=== PATIENT | male | born 1945 | race Caucasian/White ===

== ENCOUNTER 2021-07-20 09:06 | Outpatient (CLI) | payer MEDICARE, SELFPAY ==
--- NOTE | 2021-07-20 09:18 | ECHO_ITS ---
Patient Info Name: Partha Telles Age: 76 years : 1945 Gender: Male Ht: 70 in Wt: 210 lbs BSA: 2.19 m2 HR: 65 bpm BP: 147 / 70 mmHg Exam Date: 07/20/2021 9:42 AM Exam Location: [facility] Patient Status: Outpatient Admit Date: 07/20/2021 Staff Ordering Physician: Alexi Acuña DO Sap Pi Developer: MARIA ESTHER Attending Provider: Alexi Acuña DO Referring Physician: Domenico BAPTISTE; Exam Type: CA echo doppler color flow Study Info Indications I45.89 - Other specified conduction disorders Complete two-dimensional, color flow and Doppler transthoracic echocardiogram is performed. Summary 1. Complete two-dimensional, color flow and Doppler transthoracic echocardiogram is performed. 2. Left ventricular chamber dimension is mildly enlarged. 3. Left ventricular systolic function is normal, estimated at 55-60%. 4. The left ventricular diastolic function is normal. 5. E/e' 8 is minimally elevated. 6. Left atrial chamber dimension is severely enlarged. 7. Right atrial chamber dimension is moderately enlarged. 8. There is mild aortic valve sclerosis. 9. There is mild aortic valve regurgitation. 10. The mitral valve has mildly calcified annulus. 11. There is moderate tricuspid valve regurgitation. 12. Mild pulmonary hypertension, estimated pulmonary arterial systolic pressure is 47 mmHg. 13. There is trace pulmonic regurgitation. 14. Dilated inferior vena cava with >50% collapse upon inspiration consistent with elevated right atrial pressure, 10 mmHg. Left Ventricle E/e' 8 is minimally elevated. Left ventricular chamber dimension is mildly enlarged. Left ventricular systolic function is normal, estimated at 55-60%. The left ventricular diastolic function is normal. Right Ventricle Right ventricular systolic function is normal and with normal TAPSE 2.3 cm. Right ventricular chamber dimension is normal. Left Atria Left atrial chamber dimension is severely enlarged. Right Atria Right atrial chamber dimension is moderately enlarged. Aortic Valve The aortic valve is trileaflet. There is mild aortic valve sclerosis. There is no aortic valve stenosis. There is mild aortic valve regurgitation. Pulmonic Valve There is trace pulmonic regurgitation. Mitral Valve The mitral valve has mildly calcified annulus. There is no mitral valve stenosis. There is moderate mitral valve regurgitation. Tricuspid Valve There is moderate tricuspid valve regurgitation. Mild pulmonary hypertension, estimated pulmonary arterial systolic pressure is 47 mmHg. Pericardium/Pleural There is no pericardial effusion. Inferior Vena Cava Dilated inferior vena cava with >50% collapse upon inspiration consistent with elevated right atrial pressure, 10 mmHg. Aorta The aortic root size at the sinus of Valsalva is normal. Left Ventricular Outflow Tract Name Value Normal LVOT 2D LVOT Diameter 2.0 cm LVOT Doppler LVOT Peak Velocity 106 cm/s LVOT Peak Gradient 4 mmHg LVOT Mean Gradient 2 mmHg LVOT VTI 19 cm
== END 2021-07-20 09:07 | disposition home or self-care (01) ==
LOC: CHSIMG 09:11
PROVIDERS: PCP Internal Medicine; Visit Provider Internal Medicine Cardiovascular Disease
DX: I48.92 Unspecified atrial flutter (principal)
CPT/HCPCS: 93306

== ENCOUNTER → 2021-09-05 07:38 | Outpatient (CLI) | payer MEDICARE, SELFPAY ==
--- NOTE | 2021-09-25 15:44 | WPDSLEEPSTUD ---
Sleep Study Date of Study: 09/05/21 <Lacey Curran DO - Last Filed: 09/25/21 17:31> Ordering Provider: Alexi cAuña DO <Lacey Curran, DO - Last Filed: 09/25/21 17:31> Interpreting Physician: Lacey Curran DO <Lacey Curran DO - Last Filed: 09/25/21 17:31> Sleep Study Type: Split Polysomnogram <Lacey Curran DO - Last Filed: 09/25/21 17:31> Height: 1.78 m <Lacey Curran DO - Last Filed: 09/25/21 17:31> Weight: 97.522 kg <Lacey Curran DO - Last Filed: 09/25/21 17:31> Body Mass Index: 30.8 <Lacey Curran DO - Last Filed: 09/25/21 17:31> Neck Circumference (inches): 17 <Lacey Curran DO - Last Filed: 09/25/21 17:31> [place]: 6 <Lacey Curran DO - Last Filed: 09/25/21 17:31> Reason for Sleep Study Daytime hypersomnia. <Lacey Curran DO - Last Filed: 09/25/21 17:31> Sleep History The patient is a 76-year-old male with COPD, hypertension, atrial flutter with RVR and history of tobacco use that had a split study ordered by his media planner for evaluation of sleep apnea. The patient denies awakening from sleep short of breath. He denies awakening at night with heartburn, belching or cough. He occasionally snores and is loud enough that others complain. He denies having trouble sleeping when he has a cold. He denies waking up gasping for air throughout the night. He denies having breathing problems at night observed by others. He occasionally sweats excessively at night. He occasionally has heart palpitations or irregular heartbeats during the night. He occasionally falls asleep during the day but never while driving. He denies sleep paralysis, cataplexy and hypnagogic / hypnopompic hallucinations. He has never had trouble at work due to sleepiness. He denies having nightmares. He frequently has thoughts racing through his mind. He occasionally feels sad or depressed. He occasionally has anxiety. He denies noticing parts of his body jerk or kicking throughout the night. He denies having crawling and aching feelings in his legs. He occasionally has leg pain during the night. He denies grinding his teeth during sleep and awakening with morning jaw pain. He is occasionally bothered by pain during the day but never awakened by pain during the night. He occasionally wakes up feeling stiff in the morning with sore and achy muscles. He goes to bed at 10:00 p.m. on weekdays and at midnight on the weekends. He can fall asleep pretty quickly. He typically wakes up 2-3 times per night. When he awakens, he would use the restroom. He will stay awake for 1-2 hours. He will wake up between 4 and 5:00 a.m. on weekdays and between 6 7:00 a.m. on the weekends. Typically gets 6 hours of sleep per night. He will stay in bed for 1 hour after waking up in the morning. He currently lives with his . He does not consume any caffeinated beverages within 2 hours of bedtime. He does not engage in physical exercise before bedtime. He will watch television before falling asleep. He will take naps in the afternoon or the evening and they are refreshing. He drinks 2 cups of caffeinated beverage per day. He will have 2 alcoholic beverages per day. He quit smoking 31 years ago. He denies recreational drug use. <Lacey Curran DO - Last Filed: 09/25/21 17:31> [facility] Past Medical History Medical History: Medical History Atrial flutter with rapid ventricular response COPD (chronic obstructive pulmonary disease) Hypertension <Lacey Curran DO - Last Filed: 09/25/21 17:31> Social History Social History: Social History Smoking status: Former smoker <Lacey Curran, - Last Filed: 09/25/21 17:31> Medications Home Medications: Home Medications Medication
[2021-09-25 15:48] VITALS: BMI 30.8
== END ==
PROVIDERS: PCP Internal Medicine; Visit Provider Internal Medicine Cardiovascular Disease
DX: G47.10 Hypersomnia, unspecified (principal); G47.33 Obstructive sleep apnea (adult) (pediatric); I48.92 Unspecified atrial flutter
CPT/HCPCS: 95811

== ENCOUNTER 2021-10-11 19:43 | Outpatient (CLI) | payer MEDICARE, SELFPAY ==
--- NOTE | 2021-10-18 12:00 | WPDSLEEPSTUD ---
Sleep Study Date of Study: 10/11/21 Ordering Provider: Alexi Acuña DO Interpreting Physician: Kati Vergara MD Sleep Study Type: CPAP Titration Height: 1.78 m Weight: 97.522 kg Body Mass Index: 30.8 Neck Circumference (inches): 17 [place]: 6 Reason for Sleep Study Split night study 09/05/2021 with moderate obstructive sleep apnea, AHI 21.4 on the diagnostic portion, and a titration with pressures between CPAP 5 cm and 14 cm H2O with treatment emergent centrals in the later half of the treatment portion of the study likely due to not spending enough time on each pressure. He returns for a dedicated full night in-lab PAP Titration. Sleep History Partha Madison is a 76-year-old male with COPD, hypertension, atrial flutter with RVR and history of tobacco use that had a split study on 09/05/2021 ordered by his balance weigher for evaluation of sleep apnea. The patient denies awakening from sleep short of breath. He denies awakening at night with heartburn, belching or cough. He occasionally snores and is loud enough that others complain. He denies having trouble sleeping when he has a cold. He denies waking up gasping for air throughout the night. He denies having breathing problems at night observed by others. He occasionally sweats excessively at night. He occasionally has heart palpitations or irregular heartbeats during the night. He occasionally falls asleep during the day but never while driving. He denies sleep paralysis, cataplexy and hypnagogic / hypnopompic hallucinations. He has never had trouble at work due to sleepiness. He denies having nightmares. He frequently has thoughts racing through his mind. He occasionally feels sad or depressed. He occasionally has anxiety. He denies noticing parts of his body jerk or kicking throughout the night. He denies having crawling and aching feelings in his legs. He occasionally has leg pain during the night. He denies grinding his teeth during sleep and awakening with morning jaw pain. He is occasionally bothered by pain during the day but never awakened by pain during the night. He occasionally wakes up feeling stiff in the morning with sore and achy muscles. He goes to bed at 10:00 p.m. on weekdays and at midnight on the weekends. He can fall asleep pretty quickly. He typically wakes up 2-3 times per night. When he awakens, he would use the restroom. He will stay awake for 1-2 hours. He will wake up between 4 and 5:00 a.m. on weekdays and between 6 7:00 a.m. on the weekends. Typically gets 6 hours of sleep per night. He will stay in bed for 1 hour after waking up in the morning. He currently lives with his . He will watch television before falling asleep. He will take naps in the afternoon or the evening and they are refreshing. Habits: No tobacco for 31 years. He drinks 2 cups of caffeinated beverage per day. He will have 2 alcoholic beverages per day. He denies recreational drug use. [facility] Past Medical History Medical History (Updated 10/18/21 @ 12:16 by Kati Vergara MD) Atrial flutter with rapid ventricular response COPD (chronic obstructive pulmonary disease) Hypertension SHIMA (obstructive sleep apnea) (~08/2021) Social History Social History Smoking status: Former smoker Medications Home Medications Medication Instructions Recorded Confirmed Type apixaban 5 mg tablet 5 mg PO BID 07/11/21 07/21/21 History diltiazem HCl 360 mg 360 mg PO DAILY #30 cap 07/11/21 07/21/21 Rx capsule,extended release 24 hr metoprolol tartrate 100 mg tablet 100 mg PO Q12H #60 tablet 07/11/21 07/21/21 Rx montelukast 10 mg tablet 10 mg PO DAILY 07/11/21 07/21/21 History multivitamin 1 tablet PO DAILY 07/11/21 07/21/21 History Sleep Procedure This test was performed using the [employer] multiple channel system including EOG, EEG, submental EMG, EKG, nasal and oral airflow using thermistors and nasal press
[2021-10-18 12:21] VITALS: BMI 30.8
== END 2021-10-12 06:15 | disposition home or self-care (01) ==
LOC: CHSCSM 19:44
PROVIDERS: PCP Internal Medicine; Visit Provider Internal Medicine Cardiovascular Disease
DX: G47.33 Obstructive sleep apnea (adult) (pediatric) (principal)
CPT/HCPCS: 95811

== ENCOUNTER 2022-01-02 00:56 | Day surgery (SDC) | payer MEDICARE, SELFPAY ==
[2022-01-01 12:00] VITALS: BMI 28.8
[2022-01-02] VITALS (10 sets, daily range): BP systolic 117–191; BP diastolic 72–100; PULSE 44–55; RESP 14–18; TEMP 36.1; O2SAT 97–100; BMI 30.2
--- NOTE | 2022-01-02 | ECHO_ITS ---
Patient Info Name: Partha Telles Age: 76 years : 1945 Gender: Male Ht: 70 in Wt: 210 lbs BSA: 2.19 m2 HR: 102 bpm Exam Date: 01/02/2022 10:53 AM Exam Location: [facility] Patient Status: Outpatient Admit Date: 01/02/2022 Staff Ordering Physician: Alexi Acuña DO Supervisor Prepress: Harsh Barrera RDCS, RT Attending Provider: Alexi Acuña DO Referring Physician: Domenico BAPTISTE; Exam Type: CA echo transesophageal Study Info Indications I45.89 - Other specified conduction disorders Complete two-dimensional, color flow and Doppler transesophageal study is performed. Procedure Details Risks/benefits/alternative treatment discuss with patient and he is agreeable for procedure. Anesthetized as per anesthesiology service. Cetacaine spray x 1. JONI probe advanced into esophagus without incident. Multiple images obtained at various levels of esophagus. JONI probe withdrawn and no blood noted on JONI probe tip. Patient tolerated procedure well. No complications. Summary 1. Transesophageal echocardiogram. 2. Left ventricular chamber dimension is normal. 3. Left ventricular systolic function is normal with an ejection fraction of 55-60%. 4. The left ventricular diastolic function is indeterminate. 5. Right ventricular chamber dimension is moderately enlarged. 6. Right ventricular systolic function is reduced. 7. Left atrial chamber dimension is severely enlarged. 8. Right atrial chamber dimension is moderately enlarged. 9. There is no thrombus visualized in the left atrial appendage in 2 orthogonal views. 10. There is mild aortic valve sclerosis. 11. There is mild aortic valve regurgitation. 12. There is mild to moderate mitral valve regurgitation. 13. There is mild to moderate tricuspid valve regurgitation. Left Ventricle Left ventricular systolic function is normal with an ejection fraction of 55-60%. Left ventricular chamber dimension is normal. The left ventricular diastolic function is indeterminate. Transesophageal echocardiogram. Right Ventricle Right ventricular chamber dimension is moderately enlarged. Right ventricular systolic function is reduced. Left Atria Left atrial chamber dimension is severely enlarged. Right Atria Right atrial chamber dimension is moderately enlarged. Atrial Appendage There is no thrombus visualized in the left atrial appendage in 2 orthogonal views. Aortic Valve The aortic valve is trileaflet. There is mild aortic valve sclerosis. There is no aortic valve stenosis. There is mild aortic valve regurgitation. Pulmonic Valve There is no pulmonic regurgitation. Mitral Valve There is no mitral valve stenosis. There is mild to moderate mitral valve regurgitation. Tricuspid Valve There is no significant tricuspid valve stenosis. There is mild to moderate tricuspid valve regurgitation. RVSP is not measured. Pericardium/Pleural There is no pericardial effusion. Inferior Vena Cava Inferior vena cava is not well visualized. Aorta The aortic root size at the sinus of Valsalva is normal. Report Signatures
--- NOTE | 2022-01-02 07:59 | WPDANESEPPF ---
Anes - Initial Pre Proc Eval Procedure: Operation Date: 01/02/22 10:30 Proposed Procedures p Trans Esophageal Echo - Alexi Acuña DO s Electrical Cardioversion - Alexi Acñua DO Date/Time: 01/02/22 07:59 Surgeon: Alexi Acuña DO Pre Op Diagnosis: A flutter Patient Data Age: 76 Gender: M Height: 1.78 m Weight: 91 kg Allergies Allergy/AdvReac Type Severity Reaction Status Date / Time No Known Allergies Allergy Verified 01/02/22 08:53 Home Medications Medication Instructions Recorded Confirmed Type apixaban 5 mg tablet 5 mg PO BID 07/11/21 01/02/22 History diltiazem HCl 360 mg 360 mg PO DAILY #30 cap 07/11/21 01/02/22 Rx capsule,extended release 24 hr montelukast 10 mg tablet 10 mg PO DAILY 07/11/21 01/02/22 History metoprolol tartrate 100 mg tablet 50 mg PO Q12H #60 tablet 12/14/21 01/02/22 Rx Patient hx anesthesia problems: none Family hx anesthesia problems: none Results Review: All pre-operative results and documents have been reviewed as part of the pre-operative evaluation. 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 Spiritual care concerns: No Anes - Eval Final PreProcedure Day of Procedure 01/02/22 07:59 Patient weight: overweight Heart: regular rate and rhythm Lungs: clear to auscultation and normal air movement Airway: Mallampati scale class II Neurological: alert and oriented Last oral intake: >/= 8 hours ASA classification: IV Emergent: no Anesthetic plan: proceed Anesthesia type and monitoring: general GIVS and standard monitoring Results Review: All pre-operative results and documents have been reviewed as part of the pre-operative evaluation. Informed Consent: The patient's anesthetic plan and its attendant risks and benefits were discussed with the patient/family/POA. Questions were solicited and answers provided to the satisfaction of the patient/family/POA.
--- NOTE | 2022-01-02 09:00 | ECG_ITS ---
Measurements Intervals [place] Rate: 46 P: 58 WI: 181 QRS: 14 QRSD: 98 T: 32 QT: 477 QTc: 417 Interpretive Statements SINUS BRADYCARDIA WITH SINUS ARRHYTHMIA NONSPECIFIC ST & T-WAVE ABNORMALITY Electronically Signed On 01-02-2022 12:10:41 CDT by Favian Contreras M.D.
[2022-01-02 09:16] LABS: Anion Gap 6 mmol/L (8-16); Blood Urea Nitrogen 18 mg/dL (9-20); Calcium 8.6 mg/dL (8.4-10.2); Carbon Dioxide 28 mmol/L (22-30); Chloride 108 mmol/L (98-107); Estimated CRCL calculation 82 ml/min; Estimated Glomerular Filt Rate > 60; Glucose 106 mg/dL (65-110); Magnesium 1.9 mg/dL (1.6-2.3); Potassium 3.8 mmol/L (3.4-5.0); Sodium 142 mmol/L (137-145)
--- NOTE | 2022-01-02 11:00 | ECG_ITS ---
Measurements Intervals [place] Rate: 63 P: [place]: 0 QRS: 37 QRSD: 125 T: 110 QT: 572 QTc: 587 Interpretive Statements ATRIAL FLUTTER/TACHYCARDIA WITH ABERRANT CONDUCTION OR VENTRICULAR PREMATURE COMPLEXES SEPTAL MYOCARDIAL INFARCTION , OF INDETERMINATE AGE Electronically Signed On 01-02-2022 9:05:20 CDT by Favian Contreras M.D.
--- NOTE | 2022-01-02 11:46 | WPDTECDV ---
JONI with Cardioversion Date of procedure: 01/02/22 Procedure Type: JONI with cardioversion Indications: Symptomatic Atrial flutter Sedation: General as per anesthesiology Findings: Vitals shows HR 100 bpm and BP 130/80 mmHg. JONI prior to cardioversion showed no left atrial or left atrial thrombus. Defibrillator pads placed on anterior and posterior chest. Cardioversion with synchronized biphasic energy at 100 J x1 successfully restored sinus rhythm. HR at 46 bpm in sinus rhythm. No complications. Conclusion: 1. Successful DC cardioversion from atrial flutter to Sinus rhythm. 2. Stop Metoprolol as he is bradycardic.
--- NOTE | 2022-01-02 14:08 | SUR.PHASEII ---
At 1340 patient was taken down to lobby in stable condition as his ride (daughter Ca) said she was a few minutes away from the hospital. While waiting outside for about 10 minutes with the patient, he called his daughter to see where she was. She then realized she went to the wrong hospital to pick him up. She went to [place] and would be heading back to [place]. I offered to have the patient come back to his room 6 in chest pain center to wait. He wished to stay outside. He also requested to go sit in his car. I educated him that he should not get in his car and explained his driving restrictions again with his procedure and sedation per anesthesia given. He agreed to wait in the lobby and not get his in car. The observing professional nursing tutor No opted to stay with patient in the lobby until daughter arrived. She and the near by screeners were given chest pain center number to contact me should they need any assistance.
== END 2022-01-02 12:15 | disposition home or self-care (01) ==
PROVIDERS: PCP Internal Medicine; Visit Provider Internal Medicine Cardiovascular Disease
PROC: (CPT 93312; principal; 2022-01-02 10:30)
DX: I48.92 Unspecified atrial flutter (principal); J44.9 Chronic obstructive pulmonary disease, unspecified; I10 Essential (primary) hypertension; G47.33 Obstructive sleep apnea (adult) (pediatric)
CPT/HCPCS: 36415; 80048; 83735; 93312; 93320; 93325; J2001; J2704

== ENCOUNTER 2022-01-08 13:58 | Outpatient (CLI) | payer MEDICARE, SELFPAY ==
--- NOTE | 2022-01-08 14:01 | ECG_ITS ---
Measurements Intervals [place] Rate: 92 P: 70 NV: 187 QRS: 49 QRSD: 85 T: 73 QT: 406 QTc: 504 Interpretive Statements SINUS RHYTHM WITH FREQUENT VENTRICULAR PREMATURE COMPLEXES WITH FREQUENT SUPRAVENTRICULAR PREMATURE COMPLEXES NONSPECIFIC ST AND T-WAVE ABNORMALITY ABNORMAL ECG COMPARED TO ECG 01/02/2022 10:57:55 FREQUENT PVCS AND PACS PRESENT Electronically Signed On 01-10-2022 17:40:09 CDT by Abhijit Whitaker M.D.
== END 2022-01-08 13:59 | disposition home or self-care (01) ==
LOC: CHSCARD 14:01
PROVIDERS: PCP Internal Medicine; Visit Provider Internal Medicine Cardiovascular Disease
DX: I48.92 Unspecified atrial flutter (principal)
CPT/HCPCS: 93005

== ENCOUNTER 2023-09-07 10:39 | Emergency (ER) | payer MEDICARE, SELFPAY ==
[2023-09-07] VITALS (11 sets, daily range): BP systolic 136–178; BP diastolic 78–119; PULSE 68–159; RESP 18–24; TEMP 37.6–37.7; O2SAT 92–98
--- NOTE | 2023-09-07 10:42 | ED.GENADULT ---
HPI - General Adult General Chief complaint: Upper Respiratory Infection Stated complaint: positive covid wants rx paxlovid Source: patient Mode of arrival: ambulatory Limitations: no limitations History of Present Illness HPI narrative: 78-year-old male with a history of hypertension, COPD, atrial flutter status post DCCV, SHIMA on CPAP tested positive for COVID. Patient is currently asymptomatic. He would like to be started on Paxlovid. He presents with -- low-grade fever -- denies any other symptoms. He denied chest pain or shortness of breath. Onset (ago): hour(s) ( 4 hours) Related Data Allergies Allergy/AdvReac Type Severity Reaction Status Date / Time No Known Allergies Allergy Verified 07/16/22 13:27 Review of Systems Review of Systems: All systems reviewed & are unremarkable except as noted in HPI and below Constitutional: Constitutional: Reports as per HPI, Reports no additional constitutional complaints and Reports fever(s) Eyes: Eyes: Reports as per HPI and Reports no additional eye complaints ENT: Reports system reviewed and no additional complaints, except as documented and Reports as per HPI Cardiovascular: Cardiovascular: Reports as per HPI and Reports no additional cardiovascular complaints Respiratory: Respiratory: Reports as per HPI and Reports no additional respiratory complaints Gastrointestinal: Gastrointestinal: Reports as per HPI and Reports no additional gastrointestinal complaints Genitourinary: Genitourinary: Reports no additional male genitourinary complaints and Reports as per HPI Musculoskeletal: Musculoskeletal: Reports no additional musculoskeletal complaints and Reports as per HPI Integumentary/Breasts: Skin/Breast: Reports system reviewed and no additional complaints, except as docu and Reports as per HPI Neurologic: Reports system reviewed and no additional complaints, except as documented and Reports as per HPI Psychiatric: Psychiatric: Reports no additional psychiatric complaints and Reports as per HPI Endocrine: Endocrine: Reports no additional endocrine complaints and Reports as per HPI Hematologic/Lymphatic: Hematologic/Lymphatic: Reports no additional hematologic/lymphatic complaints and Reports as per HPI Allergic/Immunologic: Allergic/Immunologic: Reports no additional allergic/immunologic complaints and Reports as per HPI PMFSH Past Medical History Medical History Atrial flutter with rapid ventricular response COPD (chronic obstructive pulmonary disease) Hypertension SHIMA (obstructive sleep apnea) (~08/2021) Social History Social History Smoking packs per day: 0 Smoking cigarettes per day: 0.0 Years smoked: 0 Smoking pack-years: 0.00 Smoking status: Former smoker Substance use: never Substance use type: does not use Living arrangements: with family Additional living arrangements comments: 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 Spiritual care concerns: No Exam Const: General: no acute distress Orientation/consciousness: patient oriented x3 Limitations: no limitations HENMT: Head: normal to inspection Ears: external ears normal Face/Nose/Sinus: Normal external nose present Face and sinus: normal facial exam Mouth: Yes Normal oral and palatal mucosa present Throat: posterior oropharynx normal Eyes: Conjunctivae: conjunctivae normal Pupils: Equal, round and reactive pupils present EOM: EOMs intact bilaterally Direct Ophthalmoscopy: no photophobia Neck: Neck: normal visual inspection, no lymphadenopathy and no meningeal signs Chest: Chest palpation & inspection: normal inspection of the chest and abnormal inspection of the chest Resp: Effort & Inspection: normal respiratory effort Cardio: Rate: tachycardic Rhythm: regular rhythm Other: irregularly irregular heart rate with the pulse of 148.
--- NOTE | 2023-09-07 11:00 | ECG_ITS ---
Measurements Intervals [place] Rate: 142 P: SC: 0 QRS: 59 QRSD: 89 T: 74 QT: 327 QTc: 503 Interpretive Statements ATRIAL FLUTTER/TACHYCARDIA WITH RAPID VENTRICULAR RESPONSE NONSPECIFIC ST AND T-WAVE ABNORMALITY ABNORMAL ECG COMPARED TO ECG 01/08/2022 14:54:41 ATRIAL FLUTTER NOW PRESENT Electronically Signed On 09-08-2023 9:12:13 SHUTTLE OPERATOR by Alexandre Petty M.D.
[2023-09-07] MEDS: dilTIAZem HCl INJ 25 MG/5 ML VIAL 10 MG IV PUSH (11:08)
[2023-09-07 11:14] LABS: Basophils Absolute Auto 0.02 K/mm3 (0.00-0.10); Basophils Percent Auto 0.3 % (0.0-1.0); Eosinophils Absolute Auto 0.01 K/mm3 (0.02-0.50); Eosinophils Percent Auto 0.1 % (1.0-6.0); Hematocrit 43.1 % (37.0-46.0); Hemoglobin 14.5 g/dL (12.4-15.3); Immature Granulocyte Absolute 0.02 K/mm3 (0.00-0.00); Immature Granulocyte Percent A 0.3 % (0.0-0.0); Lymphocytes Percent Auto 11.7 % (18.0-42.0); Mean Corpuscular HGB Conc 33.6 g/dL (32.0-36.0); Mean Corpuscular Hemoglobin 33.6 pg (27.0-31.0); Mean Corpuscular Volume 99.8 fL (78.0-102.0); Mean Platelet Volume 9.5 fl (8.7-11.0); Monocytes Absolute Auto 0.84 K/mm3 (0.10-0.90); Neutrophils Absolute Auto 5.9 K/mm3 (1.7-7.2); Neutrophils Percent Auto 76.6 % (50.0-70.0); Platelet Count Result 208 K/mm3 (150-420); Red Blood Count 4.32 M/mm3 (4.70-6.10); Red Cell Distribution Width 12.9 % (11.6-14.4); White Blood Count 7.7 K/mm3 (4.8-10.8)
[2023-09-07 11:29] LABS: Alanine Aminotransferase 27 U/L (16-63); Albumin Level 3.9 g/dL (3.4-5.0); Alkaline Phosphatase 82 U/L (46-116); Anion Gap 6 mmol/L (8-16); Aspartate Amino Transferase 19 U/L (15-37); Bilirubin,Total 0.7 mg/dL (0.00-1.00); Blood Urea Nitrogen 11 mg/dL (7-18); Calcium 8.8 mg/dL (8.5-10.1); Carbon Dioxide 30 mmol/L (21-32); Chloride 101 mmol/L (98-108); Estimated CRCL calculation 49 ml/min; Estimated Glomerular Filt Rate > 60; Glucose 100 mg/dL (70-99); Osmolality Calculated 283 mOsm/kg (285-295); Potassium 3.9 mmol/L (3.5-5.1); Sodium 137 mmol/L (136-145); Total Protein 7.5 g/dL (6.4-8.2); Troponin I 8.3 ng/L (0.00-60.4)
[2023-09-07 11:49] LABS: SARS-CoV-2 RNA PCR Positive (Negative)
[2023-09-07 11:51] LABS: Influenza A QL RT-PCR Negative (Negative); Influenza B QL RT-PCR Negative (Negative); RSV RNA, RT-PCR Negative (Negative)
== END 2023-09-07 12:22 | disposition left against medical advice (07) ==
PROVIDERS: Emergency Provider Internal Medicine Critical Care Medicine; PCP Internal Medicine
DX: I48.92 Unspecified atrial flutter (principal); U07.1 COVID-19; J44.9 Chronic obstructive pulmonary disease, unspecified; I10 Essential (primary) hypertension; Z87.891 Personal history of nicotine dependence
CPT/HCPCS: 36415; 80053; 84484; 85025; 87637; 93005; 96374; 99284

== ENCOUNTER 2023-10-30 15:23 | Outpatient (CLI) | payer MEDICARE, SELFPAY ==
--- NOTE | ~2023-10-30 | XR_ITS ---
EXAMINATION: XR hip LT min 2V DATE: 10/30/2023 15:54 INDICATION: Left hip pain. TECHNIQUE: 2 views of left hip were obtained. COMPARISON: None. FINDINGS: Bone alignment is normal. No fracture. There is mild left hip osteoarthritis. IMPRESSION: 1. Mild left hip osteoarthritis. Reviewed, dictated and finalized at location E. IAL PROGRAMS DIRECTOR
--- NOTE | ~2023-10-30 | XR_ITS ---
EXAMINATION: XR_CERV2-3V_CR DATE: 10/30/2023 15:53 INDICATION: Limited shoulder range of motion. TECHNIQUE: 3 views of cervical spine were obtained. COMPARISON: None. FINDINGS: There is 2 mm retrolisthesis of C3 on C4. Vertebral body heights are normal. There is moder ately decreased disc height at C3-C4 and C5-C6 and mildly decreased disc height at C6-C7. There is mu ltilevel facet joint osteoarthritis, severe on the left at C4-C5. There is mild central canal stenosi s at C3-C4. No prevertebral soft tissue swelling. IMPRESSION: 1. Moderate cervical spondylosis. Reviewed, dictated and finalized at location E. NG SUPERVISOR
--- NOTE | ~2023-10-30 | XR_ITS ---
EXAMINATION: XR lumbar spine 2-3V DATE: 10/30/2023 15:54 INDICATION: Left hip pain. TECHNIQUE: 3 views of lumbar spine were obtained. COMPARISON: None. FINDINGS: Bone alignment is normal. Vertebral body heights are normal. There are endplate osteophytes at most levels. There is mildly decreased disc height at L3-L4 and L4-L5. There is multilevel facet joint osteoarthritis, severe in lower lumbar spine. Surgical clips in the right upper quadrant are isa wise from cholecystectomy. IMPRESSION: 1. Mild lumbar spondylosis. Reviewed, dictated and finalized at location E. BOILER IMPRESSION: 1. Mild lumbar spondylosis.
--- NOTE | ~2023-10-30 | XR_ITS ---
EXAMINATION: XR shoulder LT min 2V DATE: 10/30/2023 15:55 INDICATION: Left shoulder limited range of motion. TECHNIQUE: 4 views of left shoulder were obtained. COMPARISON: None. FINDINGS: Bone alignment is normal. No fracture. There is mild osteoarthritis of glenohumeral joint a nd moderate osteoarthritis of acromioclavicular joint. IMPRESSION: 1. Polyarticular osteoarthritis. Reviewed, dictated and finalized at location E. RIAL ASSISTANT
== END 2023-10-30 15:24 | disposition home or self-care (01) ==
LOC: CHSIMG 15:26
PROVIDERS: PCP Internal Medicine; Visit Provider Internal Medicine
DX: M25.512 Pain in left shoulder (principal); M54.17 Radiculopathy, lumbosacral region; M43.06 Spondylolysis, lumbar region; M43.02 Spondylolysis, cervical region; M19.012 Primary osteoarthritis, left shoulder
CPT/HCPCS: 72040; 72100; 73030; 73502

== ENCOUNTER 2023-10-31 15:03 | Outpatient (CLI) | payer MEDICARE, SELFPAY ==
--- NOTE | 2023-10-31 15:09 | ECG_ITS ---
Measurements Intervals [place] Rate: 57 P: 64 NC: 181 QRS: 75 QRSD: 90 T: 71 QT: 425 QTc: 415 Interpretive Statements SINUS BRADYCARDIA WITH OCCASIONAL ATRIAL PREMATURE COMPLEXES PROMINENT U-WAVES NONSPECIFIC T-WAVE ABNORMALITY ABNORMAL ECG COMPARED TO ECG 09/07/2023 11:16:02 SINUS BRADYCARDIA NOW REPLACES ATRIAL FLUTTER Electronically Signed On 11-01-2023 7:23:13 ASSEMBLING MOTOR BUILDER by Alexandre Petty M.D.
== END 2023-10-31 15:04 | disposition home or self-care (01) ==
LOC: CHSCARD 15:05
PROVIDERS: PCP Internal Medicine; Visit Provider Internal Medicine Cardiovascular Disease
DX: I48.92 Unspecified atrial flutter (principal); R94.31 Abnormal electrocardiogram [ECG] [EKG]; R00.1 Bradycardia, unspecified
CPT/HCPCS: 93005

== ENCOUNTER 2024-10-30 10:04 | Outpatient (CLI) | payer MEDICARE, SELFPAY ==
[2024-10-30 10:21] LABS: Basophils Absolute Auto 0.03 K/mm3 (0.00-0.10); Basophils Percent Auto 0.5 % (0.0-1.0); Eosinophils Absolute Auto 0.03 K/mm3 (0.02-0.50); Eosinophils Percent Auto 0.5 % (1.0-6.0); Hematocrit 43.8 % (37.0-46.0); Hemoglobin 14.3 g/dL (12.4-15.3); Immature Granulocyte Absolute 0.02 K/mm3 (0.00-0.00); Immature Granulocyte Percent A 0.3 % (0.0-0.0); Lymphocytes Absolute Auto 1.28 K/mm3 (1.10-4.50); Lymphocytes Percent Auto 22.2 % (18.0-42.0); Mean Corpuscular HGB Conc 32.6 g/dL (32-36); Mean Corpuscular Hemoglobin 32.4 pg (27.0-31.0); Mean Corpuscular Volume 99.1 fL (78.0-102.0); Mean Platelet Volume 9.4 fl (8.7-11.0); Monocytes Absolute Auto 0.67 K/mm3 (0.10-0.90); Monocytes Percent Auto 11.6 % (2.0-11.0); Neutrophils Absolute Auto 3.73 K/mm3 (1.70-7.20); Neutrophils Percent Auto 64.9 % (50.0-70.0); Platelet Count Result 240 K/mm3 (150-420); Red Blood Count 4.42 M/mm3 (4.70-6.10); Red Cell Distribution Width 13.1 % (11.6-14.4); White Blood Count 5.8 K/mm3 (4.8-10.8)
[2024-10-30 10:31] LABS: Add Urine Microscopic? YES; Appearance Urine Clear (Clear); Bilirubin Urine Negative (Negative); Blood Urine 1+ (Negative); Color Urine Yellow (Yellow); Glucose Urine UA Negative (Negative); Ketones Urine Trace (Negative); Leukocyte Esterase Ur Negative (Negative); Nitrate Urine Negative (Negative); Protein Urine Trace (Negative); Urobilinogen Urine 0.2 mg/dL (0.2-1.0)
[2024-10-30 10:37] LABS: Bacteria Urine Trace /hpf; Mucus Urine Few /lpf; Squamous Epithelial Cell Urine Occasional /hpf (Few); WBC Urine None seen /hpf (0-3)
--- OUTSIDE RECORDS SUMMARY | 2024-10-30 10:50 | XMS_ITS | Clinical Summary ---
Author Organization [facility] Address [address] [place] [id number] Care Team Providers Care Right Of Way Cutter Name Role Phone Unavailable Primary Care Provider Unavailabl e Social History Tobacco Use Types Packs/Day Years Used Date Smoking Tobacco: Never Assessed Sex and Gender Information Value Date Recorded Sex Assigned at Not on file Legal Sex Male 8:56 PM CDT Gender Identity Not on file Sexual Orientation Not on file Plan of Treatment Health Maintenance Due Date Last Done Comments Hepatitis C 1963 DTaP, Tdap and Td Vaccines ( 1 - Tdap) 1966 Zoster Vaccines (1 of 2) 1997 Pneumococcal Vaccine: 65+ Ye ars (1 of 1 - PCV) 2012 RSV Immunization or 60+ Years (1 - 1-dose 75+ series) 2022 COVID-19 Vaccine ( - 2023-2 5 season) 2024 Influenza Adult (#1) 2024 Meningococcal B Vaccine Aged Out No l onger eligible based on patient's age to complete this topic Meningococcal Vaccine Aged Out No mari clifton eligible based on patient's age to complete this topic RSV Immunizations Under 20 Months Aged Out No longer eligible based on patient's age to complete this topic
[2024-10-30 13:33] LABS: Alanine Aminotransferase 31 U/L (16-63); Albumin Level 3.8 g/dL (3.4-5.0); Alkaline Phosphatase 95 U/L (46-116); Anion Gap 10 mmol/L (4-12); Aspartate Amino Transferase 17 U/L (15-37); Bilirubin,Total 0.7 mg/dL (0.00-1.00); Blood Urea Nitrogen 19 mg/dL (7-18); Carbon Dioxide 27 mmol/L (21-32); Chloride 106 mmol/L (98-108); Cholesterol 179 mg/dL (0-200); Estimated Glomerular Filt Rate > 60; Glucose 93 mg/dL (70-99); HDL Direct 65 mg/dL (40-60); LDL Cholesterol Calculated 96 mg/dL (<130); Osmolality Calculated 298 mOsm/kg (285-295); Potassium 4.4 mmol/L (3.5-5.1); Prostate Specific Antigen 4.8 ng/mL (< OR = 4.0); Sodium 143 mmol/L (136-145); Thyroid Stimulating Hormone 3.42 uIU/mL (0.36-3.74); Total Protein 7.1 g/dL (6.4-8.2); Triglycerides 91 mg/dL (0-150)
== END 2024-10-30 10:05 | disposition home or self-care (01) ==
LOC: CHSLAB 10:06
PROVIDERS: PCP Internal Medicine; Visit Provider Internal Medicine
DX: I48.0 Paroxysmal atrial fibrillation (principal); Z12.5 Encounter for screening for malignant neoplasm of prostate; I10 Essential (primary) hypertension
CPT/HCPCS: 36415; 80053; 80061; 81001; 84153; 84443; 85025; G0103

== ENCOUNTER 2024-11-09 14:00 | Outpatient (CLI) | payer MEDICARE, SELFPAY ==
--- NOTE | 2024-11-09 14:14 | ECG_ITS ---
Test Date: 2024-11-09 14:31:10 Measurements Intervals [place] Rate: 66 P: 0 NV: 0 QRS: 83 QRSD: 85 T: 72 QT: 397 QTc: 417 Interpretive Statements ATRIAL FLUTTER WITH NORMAL VENTRICULAR RATE CANNOT R/O SEPTAL INFARCT, AGE INDETERMINATE ABNORMAL ECG No previous ECG available for comparison Electronically Signed On 11-09-2024 14:41:39 BMET by Alexi Acuña D.O.
[2024-11-09 14:57] LABS: Cholesterol 192 mg/dL (0-200); HDL Direct 67 mg/dL (40-60); LDL Cholesterol Calculated 103 mg/dL (<130); Triglycerides 108 mg/dL (0-150)
--- OUTSIDE RECORDS SUMMARY | 2024-11-09 16:40 | XMS_ITS | Clinical Summary ---
Author Organization [facility] Address [address] [place] [id number] Care Team Providers Care Senior Clerk Name Role Phone Unavailable Primary Care Provider [...]
== END 2024-11-09 14:01 | disposition home or self-care (01) ==
LOC: CHSLAB 14:03
PROVIDERS: PCP Internal Medicine; Visit Provider Internal Medicine Cardiovascular Disease
DX: I48.92 Unspecified atrial flutter (principal); I10 Essential (primary) hypertension; R94.31 Abnormal electrocardiogram [ECG] [EKG]
CPT/HCPCS: 36415; 80061; 93005